=== PATIENT | female | born 1950 | race Caucasian/White ===

== ENCOUNTER 2017-01-25 11:18 | Inpatient (IN) | payer MEDICARE, OTHER ==
[~2017-01-25] VITALS: Ht 157.5 cm; Wt 101.4 kg
--- NOTE | ~2017-01-25 | DS ---
PATIENT'S NAME: [facility]ONTANA [facility] AGE: 66 Y [address] ROOM: [address] [address] LOCATION: [place] ADMIT DATE: 01/25/2017 Discharge Summary DISCHARGE DATE: 01/31/2017 FAMILY PHYSICIAN: Kandice Cárdenas MD ATTENDING PHYSICIAN: Jose E Garcia DISCHARGE DIAGNOSES: 1. Severe sepsis secondary to Escherichia coli urinary tract infection. 2. Depression, suicidal thoughts. 3. Diabetes mellitus type 2 with hyperglycemia with long-term insulin use. 4. Acute kidney injury on chronic kidney disease, 3. 5. Essential hypertension. 6. History of renal transplant with mild resistive index elevation on ultrasound. 7. Morbid obesity. HOSPITAL COURSE: Please refer to admitting history and physical as dictated by Dr. Garcia. Briefly, the patient was admitted to [facility] with increase in urinary frequency, urgency and chills as well as weakness. She also had not been taking in much p.o. She was admitted to [facility]. She was found to have a urinary tract infection. She was started on IV meropenem. She was also noted to have acute kidney injury with her creatinine being 1.4 upon admit. She had renal ultrasound performed while hospitalized which did show mild resistive index elevation at the transplanted kidney. There was no ultrasound findings of collecting system obstruction at the transplanted kidney. The patient was started on the sepsis orders. She was noted to be depressed as well as had some suicidal ideation. Therefore, insulin pump was discontinued. She was managed with subcu insulin. She was also placed on 15 minute checks. Throughout her stay, her sugars were managed with Levemir and sliding scale until her pump could be restarted. Psych consult was obtained because of her recurrent depression. Dr. Fontana did discontinue her Lexapro, increased her Effexor and started her on Abilify. It was recommended that she follow up as an outpatient with Dr. Geller. Her urine culture did show E. coli. She was changed to Rocephin 2 g IV daily. The patient's insulin pump was resumed on 01/27/2017. There was concern for ESBL. Therefore, she was changed from Rocephin to ertapenem. Physical therapy and occupational therapy were consulted. The patient was up ambulatory in the hallways. Her mood did improve. She was given the suicidal hotline prior to discharge by care management. She did have poor venous access. Therefore, she did receive a central line for antibiotic therapy. FK trough level was drawn which is currently pending. The patient was given albuterol as needed for shortness of breath and wheezing. The patient's blood glucoses did stabilize once her pump was resumed. Fasting glucose on the day of discharge 141. She was up ambulatory in the hallway. She had no further urinary frequency or urgency. On 01/31/2017, the patient's vital signs were stable. It was felt as though PATIENT'S NAME: [facility] AGE: 66 Y [address] ROOM: [address] [address] LOCATION: [place] ADMIT DATE: 01/25/2017 Discharge Summary DISCHARGE DATE: 01/31/2017 FAMILY PHYSICIAN: Kandice Cárdenas MD ATTENDING PHYSICIAN: Jose E Garcia she was safe to be discharged to home. Follow up with Dr. Cárdenas on Monday02/03/2017 at 2:30 with the CBC and BMP. Follow up with Dr. Geller on Monday02/07/2017 at 10:45. Follow up with Dr. Moore at [facility] regarding her transplant this week. I did call and speak with Dr. Cárdenas and give her an update on the patient's hospitalization stay prior to the patient's discharge. LABORATORY DATA: Sodium ranged from 138 to 144. Potassium 3.8 to 4.6. Anion gap 13.8, calcium 8.4, BUN 25 to 32, creatinine 0.9 to 1.4. GFR upon admit 38 prior to discharge 55. WBC 3.8 to 9.1. Hemoglobin 11.6, hematocrit 35.3, platelets 183. UA; leukocytes 100, nitrites positive, protein 15, wbc's 10 to 20, rbc's negative, epithelial rare, bacteria few. Blood cultures revealed no growth at 5 days. Urine culture showed greater than 100,000 E. coli. IMAGING: Radiology reports: Please refer to hospital course for ultrasound of the kidney. DISCHARGE INSTRUCTIONS: 1. The patient will be discharged to home. 2. Activity: As tolerated. 3. Weightbearing status: As tolerated. 4. Diet: Diabetic. 5. Follow up with Dr. Cárdenas in 3 days with the CBC and BMP. 6. Follow up with Dr. Geller in 1 week. 7. Follow up with Dr. Moore this week. DISCHARGE MEDICATIONS: 1. [place]-3, 1000 mg p.o. t.i.d. 2. Gabapentin 400 mg p.o. t.i.d. 3. Tacrolimus 2 mg p.o. twice daily. 4. Bentyl 10 mg p.o. twice daily. 5. Prednisone 5 mg p.o. daily. 6. Omeprazole 40 mg p.o. daily. 7. Effexor 300 mg p.o. daily. 8. Allopurinol 100 mg p.o. daily. 9. Fenofibrate 200 mg p.o. at bedtime. 10. Ranitidine 150 mg p.o. at bedtime. 11. Mycophenolate 540 mg p.o. twice daily. 12. PreserVision lutein 2 tablets p.o. twice daily. 13. Magnesium chloride 1 tablet p.o. t.i.d. 14. Aspirin 81 mg p.o. daily. 15. Vitamin B12, 1000 mcg p.o. daily. 16. Vitamin D3, 5000 units p.o. daily. 17. Calcium with vitamin D 1 tablet p.o. twice daily. 18. Stool softener 1 tablet p.o. twice daily. PATIENT'S NAME: [facility] AGE: 66 Y [address] ROOM: [place] [address] LOCATION: [place] ADMIT DATE: 01/25/2017 Discharge Summary DISCHARGE DATE: 01/31/2017 FAMILY PHYSICIAN: Kandice Cárdenas MD ATTENDING PHYSICIAN: Jose E Garcia 19. Losartan 50 mg p.o. at bedtime. 20. Multivitamin 1 tablet p.o. daily. 21. Norvasc 10 mg p.o. daily. 22. Carvedilol 25 mg p.o. twice daily. 23. Lactobacillus 1 capsule daily. 24. Insulin per insulin pump. 25. Tylenol 325 mg p.o. every 4 hours as needed. 26. Cetirizine 10 mg p.o. at bedtime. 27. Rosuvastatin 5 mg p.o. at bedtime. 28. Lasix 20 mg p.o. daily. 29. Metamucil 1 capsule 4 times a day. 30. Glucagon 1 mg subcu as needed for hypoglycemia. 31. Gelatin 600 mg p.o. t.i.d. 32. Albuterol nebulizer every 4 hours as needed for shortness of breath or wheeze. Use inhaler or nebulizer, do not use at the same time. 33. Abilify 2 mg p.o. daily. Thank you for allowing us to participate in the care of this patient as she has been hospitalized at [facility]. Time spent at the bedside with the patient as well as in coordination of care and medication reconciliation 35 minutes. FARA GOMES APRN FOR DAMASO URBINA MD KRR/modl /[id number] CC: MD Jeff Koehler MD Hugo Gonzalez, MD d: 02/01/17 0210 t: 02/06/17 1512, DISCHARGE SUMMARY
--- NOTE | ~2017-01-25 | ER ---
PATIENT'S NAME: NORIS FONTANA [facility] AGE: 66 Y [address] ROOM: [place] [address] LOCATION: [facility] ADMIT DATE: 01/25/2017 ER/Outpatient Report DISCHARGE DATE: FAMILY PHYSICIAN: Kandice Cárdenas MD ATTENDING PHYSICIAN: BANDAR GLASS Time of Arrival: 1118 hours. Time of Evaluation: 1129 hours. IDENTIFICATION: A 66-year-old female. CHIEF COMPLAINT: Difficulty breathing. HISTORY OF PRESENT ILLNESS: The patient is a 66-year-old female, who has been short of breath since last night. She said she just feels like she is not getting a deep breath. She did have a cough, productive of purulent sputum last night, but no production today. She has felt like maybe she has had a fever. She has no chest pain. She has had 2 loose stools. She has had nausea. No increased lower extremity edema. ALLERGIES: SHE TOLD ME TO PENICILLIN, SHE GETS HIVES. OLD RECORDS, HOWEVER, REFLECTS THAT SHE IS ALLERGIC TO PENICILLINS, CAUSE HIVES; CEPHALOSPORINS, CAUSE NAUSEA, TACHYCARDIA, AND VOMITING; CLARITHROMYCIN CAUSES NAUSEA AND VOMITING; CARBAPENEMS; LIPITOR; MACROLIDES; ZETIA; AND RADIOGRAPHIC DYE. CURRENT MEDICATIONS: The patient did not know her medications, so they were faxed from Dr. Cárdenas, her primary care doctor. 1. Penny 180 mg daily p.r.n. 2. Allopurinol 100 mg daily. 3. Amlodipine 10 mg daily. 4. Aspirin 81 mg daily. 5. Calcium 600 mg b.i.d. 6. Carvedilol 25 mg b.i.d. 7. Culturelle oral capsule 1 daily. 8. Dicyclomine 10 mg b.i.d. 9. Escitalopram 20 mg 1-1/2 tablets daily. 10. Fenofibrate micronized 200 mg daily. 11. Fish oil 1000 mg t.i.d. 12. Fluticasone nasal spray 2 sprays to each nostril once daily. 13. Furosemide 20 mg daily. PATIENT'S NAME: NORIS FONTANA [facility] AGE: 66 Y [address] ROOM: [place] [address] LOCATION: [facility] ADMIT DATE: 01/25/2017 ER/Outpatient Report DISCHARGE DATE: FAMILY PHYSICIAN: Kandice Cárdenas MD ATTENDING PHYSICIAN: BANDAR GLASS 14. Gabapentin 400 mg t.i.d. 15. Gelatin 600 mg t.i.d. 16. Glucagon use as directed. 17. Losartan 50 mg daily. 18. Mag-Delay 535 mg (64 mg) extended release 1 tablet 3 times daily. 19. Metamucil use as directed. 20. Montelukast 10 mg daily. 21. Mycophenolic acid 100, three tablets b.i.d. 22. NovoLog FlexPen 12 units with breakfast, 12 units with lunch, and 15 units with supper. 23. Omeprazole 40 mg daily. 24. One Daily Women's 50+ oral tablet daily. 25. KCl 10 mEq 2 capsules daily. 26. Prednisone 5 mg daily. 27. PreserVision 1 b.i.d. 28. Ranitidine 150 mg daily p.r.n. 29. Rosuvastatin 5 mg daily. 30. Symbicort 80/4.5 two puffs twice daily. 31. Tacrolimus 1 mg twice daily. 32. Venlafaxine ER 225 mg at bedtime. 33. Ventolin 2 puffs q.6 hours p.r.n. 34. Vitamin B12, 1000 mcg daily. 35. Vitamin D3, 3000 units daily. MEDICAL PROBLEMS: Alopecia, arthritis, coronary artery disease, chronic sinusitis with recurrent bronchitis, cough, depression, diabetes mellitus, polyneuropathy, stage III chronic kidney disease, retinopathy, diabetic retinopathy, edema, seasonal allergic rhinitis, gastroesophageal reflux disease, gout, history of renal transplant, hypertension, immunosuppressed status, irritable bowel syndrome, recurrent UTI, shortness of breath, sinusitis, swelling of lower extremity, upper respiratory infection, history of Gram-negative sepsis, and history of pneumonia. PRIOR SURGERIES: Appendectomy, cardiac stent placement, cholecystectomy, gastric stapling, hernia repair, knee surgery, low back surgery, renal transplant, rotator cuff, sinus surgery, tonsillectomy, tubal ligation, and hysterectomy. FAMILY HISTORY: Mother with coronary artery disease and hypertension. Father with coronary artery disease. Sister with diabetes mellitus. Brother with diabetes mellitus and stomach cancer. SOCIAL HISTORY: PATIENT'S NAME: NORIS FONTANA [facility] AGE: 66 Y [address] ROOM: [address] [address] LOCATION: [facility] ADMIT DATE: 01/25/2017 ER/Outpatient Report DISCHARGE DATE: FAMILY PHYSICIAN: Kandice Cárdenas MD ATTENDING PHYSICIAN: BANDAR GLASS The patient is . Lives in [place]. Tobacco use, denies. Alcohol use, denies. Drug use, denies. REVIEW OF SYSTEMS: All systems reviewed and negative other than what is noted in the HPI. Increased frequency of urination, but no dysuria. PHYSICAL EXAMINATION: VITAL SIGNS: Weight 101.4 kg, blood pressure 177/74, pulse 89, respirations 24, temperature 99.7, and saturations 94% on room air. GENERAL: A 66-year-old female, who appears short of breath and pale. HEENT: Head: Normocephalic and atraumatic. Ears: TMs translucent both ears. Nose: Mucosa pink. No lesions. Mouth: No lesions. Pharynx benign. Eyes: Pupils equal and reactive to light and accommodation. Extraocular movements intact. NECK: Supple. No lymphadenopathy. LUNGS: Clear to auscultation. HEART: Regular rate and rhythm. No murmur, rub, or gallop. ABDOMEN: Bowel sounds present. Soft. Nondistended. No hepatosplenomegaly. No palpable masses. Nontender. SKIN: [place], warm, and dry. No lesions or rashes noted. NEURO: No focal deficit. Trace of lower extremity edema. No calf tenderness. LABORATORY DATA AND X-RAYS: Hemoglobin 11.2, hematocrit 34.2, platelets 197, white count 8.4 with 75% segs and 11% bands. INR 1.07. D-dimer 0.32. ProBNP 1189, no previous proBNP available for comparison. Sodium 138, potassium 4.3, chloride 106, CO2 of 22, BUN 32, and creatinine 1.4. She is not sure what her baseline creatinine runs, but thinks that "sounds pretty good." She had a creatinine in September 2016 of 1.3. Blood sugar 231. Liver enzymes normal. CPK 70, CK-MB 0.8, and troponin I less than 0.040. UA: Specific gravity 1.010, pH 5.0, leukocytes positive, nitrites positive, trace of protein, 10 to 20 white cells, negative red cells, rare epithelial cells, few bacteria. Urine culture pending. Blood culture x2 pending. Lactate 2.2. Procalcitonin 0.07. EKG showed normal sinus rhythm at 89 beats per minute. No acute ST elevation or depression. Nonspecific ST-T wave changes. One-view chest x-ray showed no acute process, pending Radiology over-read. IMPRESSION: 1. Urinary tract infection. 2. Chronic immunosuppression. 3. Renal transplant with chronic kidney disease, appears stable at this time. 4. Diabetes mellitus, insulin requiring. PATIENT'S NAME: NORIS FONTANA [facility] AGE: 66 Y [address] ROOM: [place] [address] LOCATION: [facility] ADMIT DATE: 01/25/2017 ER/Outpatient Report DISCHARGE DATE: FAMILY PHYSICIAN: Kandice Cárdenas MD ATTENDING PHYSICIAN: BANDAR GLASS EMERGENCY DEPARTMENT COURSE: An IV was initiated. The patient was given normal saline at 150 mL/h. Antibiotics with her allergies were deferred to hospitalist, who is admitting her, Dr. Glass. Antibiotics to be ordered per Dr. Glass. The patient is hemodynamically stable and saturations remained greater than 94% on room air. JOSELINE GARRETT MD CAR/modl /[id number] d: 01/25/17 2211 t: 01/27/17 0759, OUTPATIENT REPORT
--- NOTE | ~2017-01-25 | OR ---
PATIENT'S NAME: NORIS FONTANA [facility] AGE: 66 Y [address] ROOM: [place] [address] LOCATION: [facility] ADMIT DATE: 01/25/2017 OR/Procedure Report DISCHARGE DATE: 01/31/2017 FAMILY PHYSICIAN: Kandice Cárdenas MD ATTENDING PHYSICIAN: BANDAR GLASS SURGEON: Mukesh Kyle MD DESIGN TECHNOLOGY PROFESSOR: DATE OF PROCEDURE: 01/28/2017 Corrected work type 02/07/17 AO PROCEDURE: Right central venous catheterization. INDICATION: IV access. DESCRIPTION OF PROCEDURE: Informed consent was obtained. Risks and benefits, including pneumothorax as well as bleeding explained. A time-out was taken. Right IJ was inspected with ultrasonography without any evidence of thrombus. Left IJ was also without any thrombus and patent. The right IJ was selected for the central venous catheterization. The patient was prepped in sterile fashion. Using all sterile measures, local anesthesia was obtained with 1% lidocaine under real guidance. Trocar needle was entered in the IJ and oozing of dark purple blood was obtained. Guidewire was advanced and needle retrieved. Confirmation of the guidewire in the IJ was done using ultrasonography. Using blade 10, a small vicente was made and a dilator was threaded over the guidewire and dilatation was achieved. Triple lumen catheter was advanced over the guidewire and then the guidewire retrieved. Line was secured with sutures and a sterile dressing applied. No immediate complications noted. A chest x-ray was ordered. MUKESH KYLE MD CHRISTOPHE/modl /[id number] Corrected work type 02/07/17 AO d: 01/28/17 2331 t: 02/12/17 1507, OPERATIVE SUMMARY
--- NOTE | ~2017-01-25 | HP ---
PATIENT'S NAME: NORIS FONTANA [facility] AGE: 66 Y [address] ROOM: [address] [address] LOCATION: [facility] [place] ADMIT DATE: 01/25/2017 History & Physical DISCHARGE DATE: FAMILY PHYSICIAN: Kandice Cárdenas MD ATTENDING PHYSICIAN: BANDAR GLASS DATE OF SERVICE: CHIEF COMPLAINT: Decreased oral intake and increased urinary frequency and urgency. HISTORY OF PRESENT ILLNESS: This is a 66-year-old female, who says that for the last two to three days she has been experiencing an increase in urinary frequency and urgency, but she denies any dysuria. For the last few days, she also has been feeling some chills, but she never took the temperature. She also had been having some generalized weakness for the last few days. She also has been experiencing decreased oral intake in the last few days as well. She says that she chronically has some exertional dyspnea, but that has not worsened. She was told by a physician in [place] many years ago that she had a mild degree of heart failure, but she is not sure which type, and she could not remember when was the last echo that was performed. Shortness of breath is not a major complaint on this admission, and she states it is at baseline and does not bother her. She denies any productive cough. She has some occasional dry cough that is not new, and that has been chronic. She denies any chest pain, palpitation, presyncope, syncope, or headache. REVIEW OF SYSTEMS: As mentioned in the history of present illness. All other systems reviewed were negative except those mentioned in the history of the present illness. PAST MEDICAL HISTORY: 1. Diabetes, type 2, on insulin pump. 2. History of ESRD from hypertension and diabetes status post renal transplant back in 2011 from a cadaveric renal transplant. 3. CKD, stage 3 with baseline creatinine of 1.0 to 1.3. GFR is in the 40-50 range. 4. Coronary artery disease, status post drug-eluting stent x1 back in 2012. 5. Hypertension. 6. History of ischemic stroke in the past without neurological deficit. ALLERGIES: PENICILLIN, CEPHALOSPORIN, CLARITHROMYCIN, CARBAPENEM, AND MACROLIDES. ALL THESE MEDICATIONS GIVE HER HIVES. SHE DENIES ANY ANAPHYLACTIC REACTION. SHE DENIES ANY LIP SWELLING OR SHORTNESS OF BREATH OR TONGUE SWELLING OR FACIAL EDEMA OR DROOLING OR DYSPHAGIA OR HYPOTENSION. PATIENT'S NAME: NORIS FONTANA [facility] AGE: 66 Y [address] ROOM: [address] [address] LOCATION: [facility] [place] ADMIT DATE: 01/25/2017 History & Physical DISCHARGE DATE: FAMILY PHYSICIAN: Kandice Cárdenas MD ATTENDING PHYSICIAN: BANDAR GLASS LIPITOR, WHICH CAUSES MYALGIA. ZETIA ALSO CAUSES MYALGIA. IV CONTRAST, WHICH CAUSES RASH AND VOMITING. HOME MEDICATIONS: Currently is being reconciled. SOCIAL HISTORY: The patient denies any cigarette or alcohol or illegal drug use. PAST SURGICAL HISTORY: 1. Status post one drug-eluting stent in the heart back in 2012. 2. Status post kidney transplant back in 2011. The patient states that she has three kidneys, that the two [place] kidneys were not removed. The transplanted kidney is in the right lower quadrant transplanted kidney. 3. Status post lower back surgery in the past. 4. Status post rotator cuff surgery in the past. 5. Status post tonsillectomy. 6. Status post tubal ligation. 7. Status post total abdominal hysterectomy and bilateral salpingo- oophorectomy. 8. Status post hernia repair. 9. Status post gastric bypass surgery in the past for morbid obesity. 10. Status post cholecystectomy. 11. Status post appendectomy. 12. Status post right knee surgery in the past. FAMILY HISTORY: Both parents had some cardiac problem, but she could not remember the exact cause. She could not remember any other medical problem in her parents. PHYSICAL EXAMINATION: VITAL SIGNS: Temperature was 99.7, blood pressure was 110/80, saturation was 94% on room air, respiratory rate was 14, and heart rate was 80. GENERAL APPEARANCE: Alert and oriented x3, in no acute distress. HEENT: Pupils are equally round and reactive to light. Extraocular muscles are intact. Anicteric sclerae. Nasal turbinates are normal bilaterally. Moist oral mucosa. NECK: No JVD. CARDIOVASCULAR: Regular rate and rhythm. No murmur. No rubs. No gallops. RESPIRATORY: Clear. Chest wall was nontender. ABDOMEN: Obese, soft, nontender, and nondistended. Normal bowel sounds. No hepatosplenomegaly. EXTREMITIES: No edema in upper or lower extremities. PATIENT'S NAME: NORIS FONTANA [facility] AGE: 66 Y [address] ROOM: [address] [address] LOCATION: [facility] [place] ADMIT DATE: 01/25/2017 History & Physical DISCHARGE DATE: FAMILY PHYSICIAN: Kandice Cárdenas MD ATTENDING PHYSICIAN: BANDAR GLASS NEUROLOGICAL: Grossly nonfocal. SKIN: No ulcer. No rash. No cyanosis. LABORATORY DATA: Lactic acid was 2.2. Troponin was less than 0.04. CPK was 70. ProBNP was 1189. White blood cells of 8.4, hemoglobin of 11.2, hematocrit of 34.2, MCV of 91.2, and platelets of 197. Glucose is 231, BUN is 32, creatinine is 1.4, sodium is 138, chloride is 106, potassium is 4.3, CO2 is 22, and calcium is 8.5. Total protein was 6.1, albumin was 3.0, AST was 14, ALT was 25, alkaline phosphatase was 55, and total bilirubin was 0.3. GFR is 38. Anion gap of 14.3. A1c was 7.8 back on September 26, 2016. INR is 1.0 and PTT is 24. Urinalysis with leukocytes of 100, positive nitrite, few bacteria, and 10 to 20 white blood cells. CK-MB is 0.8. Procalcitonin is 0.07. D-dimer is 0.32. IMAGING STUDIES: EKG showed sinus arrhythmia and heart rate was within normal limits without any acute ischemic findings. Chest x-ray on admission showed no evidence of acute cardiopulmonary process. ASSESSMENT AND PLAN: 1. Regarding her urinary tract infection: The patient has several allergies. Based on her last urinary tract infection, urine culture grew E. coli, and based on the sensitivity from last time, I am going to use IV meropenem. The patient states that her allergy is slight hives. Urine culture and blood cultures x2 will be obtained. The patient can have diabetic diet. Currently there is no fever nor leukocytosis, but if she develops into sepsis or severe sepsis, order set will be completed. In addition to iv meropenem, will also start IV fluids with normal saline hydration at 150 mL/hr. Check labs again in the morning. Further plan depends on clinical course. The patient is making good urine accoridng to patient, will monitor urine output. I will avoid a Tate catheter for now in the setting of urinary tract infection. 2. Regarding her acute kidney injury on chronic kidney disease, stage 3: I will get a kidney ultrasound to rule out hydronephrosis or any obstructive cause, and also to look at the anatomy of the kidney. In the setting of UTI and decreased oral intake, will give IV fluids NS at 150cc/hr for hydration. I will also check urinary electrolytes to classify the cause of acute kidney injury. Avoid nephrotoxic medications. Further plan depends on clinical course. Given that patient did have a complicated UTI and MICHELLE on CKD hospitalization course in 2016 requiring transfer to [place]. Please consult nephrology if her kidney function does not improve, especially she is a s/p transplanted kidney patient. 3. Regarding her diabetes type 2: Continue her home insulin pump. She is type 2, but she uses insulin pump for convenience. The patient will be checking the fingerstick glucose four times a day, 3 times before each meal, and 1 time at bedtime. I have told the patient to call the nurse PATIENT'S NAME: NORIS FONTANA [facility] AGE: 66 Y [address] ROOM: [address] [address] LOCATION: [facility] [place] ADMIT DATE: 01/25/2017 History & Physical DISCHARGE DATE: FAMILY PHYSICIAN: Kandice Cárdenas MD ATTENDING PHYSICIAN: BANDAR GLASS to report the fingerstick glucose, so we can record in the [facility]. The patient can continue using insulin pump to give the sliding scale according to her insulin pump. Continue diabetic diet. Check A1c. Chest x-ray looks clean and the lungs are clear. Saturation is normal on room air. She does not look volume overloaded. I am not going to order echo, given that she is not here for her heart failure. In the setting of acute kidney injury on chronic kidney disease, she required hydration; and also in the setting of urinary tract infection, she required hydration and antibiotics. 5. Deep venous thrombosis prophylaxis: The patient will be on heparin subq three times a day, 5000 units. Time spent on the day of admission was 45 minutes including chart review, interviewing the patient, examining the patient, addressing all the questions and concerns that the patient had, and going over the plan of care with the patient and the nurses and the patient's at the bedside. The patient's primary greens cutter is in [facility]. His name is Jeff Moore MD. Her family would like the provider to stay in touch with the greens cutter tomorrow during work hours to keep her in the loop, given that the patient is a status post renal transplant patient. BANDAR GLASS MD CC/modgely /[id number] D: [id number] T: [id number] HISTORY & PHYSICAL
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
[~2017-01-25 11:18] MED LIST: ALLEGRA180 MG PO; AMLODIPINE BESY10 MG PO; ASPIRIN LO-DOSE81 MG PO; BENTYL10 MG PO; CALCIUM 600 +1 EAC6 PO; COREG25 MG PO; COZAAR25 MG PO; COZAAR50 MG PO; DELTASONE5 MG PO; EFFEXOR XR150 MG PO; EFFEXOR XR75 MG PO; FENOFIBRATE200 MG PO; FISH OIL1000 MG PO; HUMALOG100 UNIT/1 SUB-Q; HUMULIN R500 UNIT/M SUB-Q; K-TAB 10MEQ10 MEQ PO; KCL - MICRO-K10 MEQ PO; LASIX40 MG PO; LEXAPRO20 MG PO; MYCOPHENOLIC A180 MG PO; NEURONTIN400 MG PO; NOVOLOG100 UNIT/1 SUB-Q; NOVOLOG100 UNIT/M SUB-Q; OMEPRAZOLE40 MG PO; PRESERVISION L1 EACH PO; PROBIOTIC1 EAC1 PO; PROGRAF 1MG CAPS1 MG PO; PROGRAF0.5 MG PO; PROVENTIL OR V6.7 GM INH; SINGULAIR10 MG PO; SLOW-MAG (64 MG1 TAB PO; STOOL SOFTENER1 EACH PO; TENORMIN25 MG PO; THERA1 EACH PO; THERAGRAN-M1 TAB PO; TOUJEO SOL300 UNIT/1 SUB-Q; VITAMIN B-121000 MCG PO; VITAMIN D35000 UNI1 PO; ZANTAC (NON-FO150 MG PO; ZYLOPRIM100 MG PO
[2017-01-25 12:01] LABS: HEMATOCRIT 34.2 % (33.0-46.0); HEMOGLOBIN 11.2 g/dL (10.0-15.0); MCH 29.9 pg (27.0-34.0); MCHC 32.7 gm/dL (32.0-36.5); MCV 91.2 fl (83.0-98.0); MPV 10.3 fl (9.4-12.4); PLATELET COUNT 197 K/uL (150-450); RBC 3.75 M/uL (3.50-5.50); RDW-CV 12.7 % (11.9-14.6); WBC 8.4 K/uL (4.0-11.0)
[2017-01-25 12:06] LABS: BILIRUBIN URINE NEGATIVE (NEGATIVE); BLOOD URINE NEGATIVE /UL (NEGATIVE); COLOR URINE YELLOW (YELLOW); GLUCOSE URINE NEGATIVE (NEGATIVE); KETONE URINE NEGATIVE (NEGATIVE); LEUKOCYTES URINE 100 /UL (NEGATIVE); NITRITE URINE POSITIVE (NEGATIVE); PROTEIN URINE 15 mg/dL (NEGATIVE); TURBIDITY URINE CLEAR (CLEAR); UROBILINOGEN URINE NORMAL (NORMAL)
[2017-01-25 12:08] LABS: INR - (THERAPEUTIC) 1.07 (0.92-1.07); PROTIME 11.2 SECONDS (9.8-11.4); PTT 24 SECONDS (25-32)
[2017-01-25 12:20] LABS: BACTERIA URINE FEW (NEGATIVE); EPITHELIAL URINE RARE #/HPF (NEGATIVE); RBC URINE NEGATIVE #/HPF (NEGATIVE)
[2017-01-25 12:21] LABS: ALK PHOS 55 IU/L (33-138); ALT 25 IU/L (12-78); ANION GAP 14.3 (10.0-19.0); AST 14 IU/L (10-40); BLOOD UREA NITROGEN 32 mg/dL (6-24); CALCIUM 8.5 mg/dL (8.5-10.5); CHLORIDE 106 mMol/L (96-110); CO2 22 mMol/L (22-32); CPK 70 IU/L (21-215); CREATININE 1.4 mg/dL (0.5-1.1); ESTIMATED GFR (MDRD EQUATION) 38; POTASSIUM 4.3 mMol/L (3.7-5.1); SODIUM 138 mMol/L (135-145); TOTAL BILIRUBIN 0.3 mg/dL (0.0-1.5); TOTAL PROTEIN 6.1 g/dL (6.0-8.4)
[2017-01-25 12:57] LABS: ABSOLUTE NEUTROPHIL CT (ANC) 7.2 K/uL (1.8-7.8); BANDED NEUTROPHIL # 0.9 K/uL (0.0-0.1); BANDED NEUTROPHILS % 11 %; LYMPHOCYTE # 0.3 K/uL (0.8-4.0); LYMPHOCYTE % 4 %; MONOCYTE # 0.8 K/uL (0.0-1.0); SEGMENTED NEUTROPHIL # 6.3 K/uL (1.8-7.8); SEGMENTED NEUTROPHIL % 75 %
[2017-01-25] MEDS ORDERED: TYLENOL325 MG PO (17:24)
[2017-01-25] MEDS ORDERED: ROSUVASTATIN CAL5 MG PO (17:42)
[2017-01-25] MEDS ORDERED: ZYRTEC10 MG PO (17:42)
[2017-01-25] MEDS ORDERED: LASIX40 MG PO (17:43)
[2017-01-25] MEDS ORDERED: METAMUCIL CAPSU1 CAP PO (17:44)
[2017-01-25] MEDS ORDERED: GLUCAGEN1 M1 SUB-Q (17:45)
[2017-01-25] MEDS ORDERED: GELATIN600 MG PO (17:45)
[2017-01-26 05:47] LABS: HEMATOCRIT 36.3 % (33.0-46.0); HEMOGLOBIN 11.4 g/dL (10.0-15.0); MCH 29.1 pg (27.0-34.0); MCHC 31.4 gm/dL (32.0-36.5); MCV 92.6 fl (83.0-98.0); MPV 10.3 fl (9.4-12.4); PLATELET COUNT 171 K/uL (150-450); RBC 3.92 M/uL (3.50-5.50); RDW-CV 12.8 % (11.9-14.6); WBC 9.1 K/uL (4.0-11.0)
[2017-01-26 06:13] LABS: ANION GAP 15.6 (10.0-19.0); CALCIUM 8.1 mg/dL (8.5-10.5); CREATININE 1.2 mg/dL (0.5-1.1); POTASSIUM 4.6 mMol/L (3.7-5.1)
[2017-01-26 06:16] LABS: ABSOLUTE NEUTROPHIL CT (ANC) 7.7 K/uL (1.8-7.8); BANDED NEUTROPHIL # 2.5 K/uL (0.0-0.1); BANDED NEUTROPHILS % 27 %; LYMPHOCYTE # 1.1 K/uL (0.8-4.0); LYMPHOCYTE % 12 %; MONOCYTE # 0.3 K/uL (0.0-1.0); SEGMENTED NEUTROPHIL # 5.3 K/uL (1.8-7.8); SEGMENTED NEUTROPHIL % 58 %
[2017-01-27 05:20] LABS: HEMATOCRIT 35.8 % (33.0-46.0); HEMOGLOBIN 11.7 g/dL (10.0-15.0); MCH 29.7 pg (27.0-34.0); MCHC 32.7 gm/dL (32.0-36.5); MCV 90.9 fl (83.0-98.0); MPV 10.2 fl (9.4-12.4); PLATELET COUNT 187 K/uL (150-450); RBC 3.94 M/uL (3.50-5.50); RDW-CV 12.7 % (11.9-14.6); WBC 4.2 K/uL (4.0-11.0)
[2017-01-27 05:39] LABS: ANION GAP 13.9 (10.0-19.0); CALCIUM 8.6 mg/dL (8.5-10.5); CREATININE 1.1 mg/dL (0.5-1.1); POTASSIUM 3.9 mMol/L (3.7-5.1)
[2017-01-27 06:10] LABS: ABSOLUTE NEUTROPHIL CT (ANC) 2.7 K/uL (1.8-7.8); BANDED NEUTROPHIL # 0.5 K/uL (0.0-0.1); BANDED NEUTROPHILS % 13 %; LYMPHOCYTE # 1.1 K/uL (0.8-4.0); LYMPHOCYTE % 26 %; MONOCYTE # 0.3 K/uL (0.0-1.0); SEGMENTED NEUTROPHIL # 2.2 K/uL (1.8-7.8); SEGMENTED NEUTROPHIL % 52 %
[2017-01-28 06:16] LABS: CALCIUM 8.7 mg/dL (8.5-10.5); CREATININE 1.1 mg/dL (0.5-1.1)
[2017-01-29 06:19] LABS: ALBUMIN 2.7 gm/dL (3.5-5.0); ALK PHOS 52 IU/L (33-138); ALT 29 IU/L (12-78); ANION GAP 11.8 (10.0-19.0); AST 27 IU/L (10-40); BLOOD UREA NITROGEN 25 mg/dL (6-24); CALCIUM 8.5 mg/dL (8.5-10.5); CHLORIDE 109 mMol/L (96-110); CO2 26 mMol/L (22-32); CREATININE 0.9 mg/dL (0.5-1.1); ESTIMATED GFR (MDRD EQUATION) > 60; POTASSIUM 3.8 mMol/L (3.7-5.1); SODIUM 143 mMol/L (135-145); TOTAL BILIRUBIN 0.3 mg/dL (0.0-1.5); TOTAL PROTEIN 5.6 g/dL (6.0-8.4)
[2017-01-29 06:21] LABS: BASOPHIL % 0.3 %; EOSINOPHIL # 0.1 K/uL (0.0-0.5); EOSINOPHIL % 3.4 %; HEMATOCRIT 34.7 % (33.0-46.0); HEMOGLOBIN 11.5 g/dL (10.0-15.0); IMMATURE GRANULOCYTE % 0.3 %; LYMPHOCYTE # 1.2 K/uL (0.8-4.0); LYMPHOCYTE % 31.7 %; MCH 29.8 pg (27.0-34.0); MCHC 33.1 gm/dL (32.0-36.5); MCV 89.9 fl (83.0-98.0); MONOCYTE # 0.6 K/uL (0.0-1.0); MONOCYTE % 16.4 %; MPV 10.4 fl (9.4-12.4); NEUTROPHIL # (ANC) 1.8 K/uL (1.8-7.8); NEUTROPHIL % 47.9 %; NRBC % 0 /100WBC (0-0.00); PLATELET COUNT 182 K/uL (150-450); RBC 3.86 M/uL (3.50-5.50); RDW-CV 12.5 % (11.9-14.6); WBC 3.8 K/uL (4.0-11.0)
[2017-01-30 06:07] LABS: BASOPHIL % 0.2 %; EOSINOPHIL # 0.1 K/uL (0.0-0.5); EOSINOPHIL % 1.5 %; HEMATOCRIT 35.3 % (33.0-46.0); HEMOGLOBIN 11.6 g/dL (10.0-15.0); IMMATURE GRANULOCYTE % 0.2 %; LYMPHOCYTE # 1.4 K/uL (0.8-4.0); LYMPHOCYTE % 30.9 %; MCH 29.4 pg (27.0-34.0); MCHC 32.9 gm/dL (32.0-36.5); MCV 89.4 fl (83.0-98.0); MONOCYTE # 0.8 K/uL (0.0-1.0); MONOCYTE % 17.3 %; MPV 10.4 fl (9.4-12.4); NEUTROPHIL # (ANC) 2.3 K/uL (1.8-7.8); NEUTROPHIL % 49.9 %; NRBC % 0 /100WBC (0-0.00); PLATELET COUNT 183 K/uL (150-450); RBC 3.95 M/uL (3.50-5.50); RDW-CV 12.4 % (11.9-14.6); WBC 4.6 K/uL (4.0-11.0)
[2017-01-30 06:08] LABS: ANION GAP 13.8 (10.0-19.0); CALCIUM 8.4 mg/dL (8.5-10.5); POTASSIUM 3.8 mMol/L (3.7-5.1)
[2017-01-31] MEDS ORDERED: ALBUTEROL2.5 MG/31 INH (13:44)
[2017-01-31] MEDS ORDERED: ABILIFY2 MG PO (13:46)
== END 2017-01-31 15:25 | disposition disaster alternative care site (69) | DRG 872 ==
LOC: GMED 11:18 → GMSU 14:20
PROVIDERS: Family Medicine; Internal Medicine; Nurse Practitioner Family; ADMIT Internal Medicine
DX: A41.51 Sepsis due to Escherichia coli [E. coli] (principal); N17.9 Acute kidney failure, unspecified; R45.851 Suicidal ideations; I13.10 Hypertensive heart and chronic kidney disease without heart failure, with stage 1 through stage 4 chronic kidney disease, or unspecified chronic kidney disease; E11.22 Type 2 diabetes mellitus with diabetic chronic kidney disease; F33.9 Major depressive disorder, recurrent, unspecified; Z68.41 Body mass index [BMI] 40.0-44.9, adult; Z94.0 Kidney transplant status; N30.00 Acute cystitis without hematuria; R65.20 Severe sepsis without septic shock; Z79.4 Long term (current) use of insulin; E66.01 Morbid (severe) obesity due to excess calories; E11.65 Type 2 diabetes mellitus with hyperglycemia; N18.3 Chronic kidney disease, stage 3 (moderate); Z86.73 Personal history of transient ischemic attack (TIA), and cerebral infarction without residual deficits; B96.20 Unspecified Escherichia coli [E. coli] as the cause of diseases classified elsewhere; R06.00 Dyspnea, unspecified
CPT/HCPCS: G0480; J0696; J1335; J1644; J1940; J2185; J7030; J7050; J7120; J7507; J7512; J7518

== ENCOUNTER → 2017-03-20 | Outpatient (CLI) | payer MEDICARE, OTHER ==
[~2017-03-20] MED LIST changes: +ABILIFY2 MG PO; +ALBUTEROL2.5 MG/31 INH; +GELATIN600 MG PO; +GLUCAGEN1 M1 SUB-Q; +METAMUCIL CAPSU1 CAP PO; +ROSUVASTATIN CAL5 MG PO; +TYLENOL325 MG PO; +ZYRTEC10 MG PO
== END | disposition disaster alternative care site (69) ==
LOC: GRAD 14:07
DX: R13.10 Dysphagia, unspecified (principal)
CPT/HCPCS: G8996; G8997; G8998